=== PATIENT | male | born 1975 | race Caucasian/White ===

== ENCOUNTER 2016-09-18 05:54 | Day surgery (SDC) | payer OTHER ==
[~2016-09-18] VITALS: Ht 182.9 cm; Wt 95.6 kg
[2016-09-18] VITALS (15 sets, daily range): BP systolic 98–134; BP diastolic 52–92; PULSE 44–58; RESP 11–18; Ht 182.9 cm; Wt 95.6 kg
[2016-09-18] MEDS ORDERED: CEFAZOLIN 1 GM/50 ML (PMX) 50 ML IVPB ONE (06:00)
[2016-09-18] MEDS ORDERED: ROCURONIUM 50 MG INJ ONE (07:56)
[2016-09-18] MEDS ORDERED: LIDOCAINE 2% (SDV) 5 ML INJ ONE (07:56)
[2016-09-18] MEDS ORDERED: PROPOFOL 20 ML ONE (07:56)
--- NOTE | 2016-09-18 08:57 | HP ---
DATE OF ADMISSION: 09/18/2016 CHIEF COMPLAINT: Slow urinary stream. HISTORY OF PRESENT ILLNESS: This is a 40-year-old male who complains of a slow stream and urinary u rgency. The patient has tried Flomax, which has caused dizziness. He tried Uroxatral, which caused a dry feeling. He complains of a sensation of incomplete bladder emptying and nocturia with small volume, but increased urge. The patient also complains that the area around his penis has become numb. He reports that his peni le area and perineal area has developed numbness and 90% of the sensitivity has "gone away". The patient also complains of erectile dysfunction. He reports his erections became weaker at aroun d the time when he developed urinary symptoms. He reports he is unable to maintain good erections. The patient reports he does not have any back symptoms. He does not complain of any leg pain. Ther e is no history of radiculopathy or weakness. MRI of his spine in April of 2016 revealed mild to moderate left neuroforaminal narrowing at L4-L5, with a small foraminal disk protrusion associated with an annular fissure. The patient was offered urodynamics, but he did not want to undergo this p rocedure. PAST MEDICAL HISTORY: None. PAST SURGICAL HISTORY: Appendectomy. MEDICATIONS: None. ALLERGIES: NO KNOWN DRUG ALLERGIES. SOCIAL HISTORY: The patient quit smoking in 2005. He does not drink alcohol. FAMILY HISTORY: No history of cancer. REVIEW OF SYSTEMS: CONSTITUTIONAL: No fevers, no chills, no change in appetite, weight gain or weight loss. HEENT: No loss of hearing. No ear or sinus pain. No rhinorrhea, nosebleed or sore throat. CARDIOVASCULAR: No chest pain, no shortness of breath or heart palpitations. RESPIRATORY: No cough. No phlegm production, wheezing or hemoptysis. GASTROINTESTINAL: No abdominal pain, no cramping, no nausea. MUSCULOSKELETAL: No bone pain. No changes in strength or joint pain. INTEGUMENTARY: No skin rash or lesions. NEUROLOGICAL: No dizziness, no headaches, no numbness. PSYCHIATRIC: The patient feels anxious over his situation. PHYSICAL EXAMINATION: CONSTITUTIONAL: The patient appears to be in no acute distress. GASTROINTESTINAL EXAMINATION: Abdomen is soft. Normal bowel sounds, nondistended, nontender. Flor ia exam, none noted. Liver and spleen normal. GENITOURINARY EXAM: Penis, no deformity, no lesions, no scarring. Urethral meatus normal in size a nd location. Testes are descended bilaterally, nontender. Anus and perineum, no lesions, no scarri ng. Prostate exam in my office revealed a 30-gram prostate on rectal examination. No nodules, no asymme try, no tenderness. DIAGNOSTIC DATA: March 2016 PSA was 2.4. Pelvic ultrasound revealed a thickened bladder wall, el evated bladder neck secondary to prostate encroachment, raising the bladder floor, with a prostate v olume of 45.9 cubic cm. ASSESSMENT: 1. Elevated bladder neck. 2. Lower urinary tract symptoms, including nocturia, urgency, frequency, slow stream. 3. Erectile dysfunction. 4. Borderline elevated PSA. 5. Benign prostatic hypertrophy. RECOMMENDATIONS: I have spoken in detail with the patient in regards to BPH, natural history and bi ology. We have discussed various treatment options. I have explained to the patient that it appear s that most of his obstructive symptoms are secondary to an elevated bladder neck, rather than a mynor bal enlargement of the prostate. We then discussed some of the options available to him. Among the se options, he understands his choices include, but are not limited to, continuing no treatment, alp johnson marquise treatment, alpha reductase treatment, transurethral resection, transurethral laser ablati on of prostate, UroLift procedure, microwave. We have discussed some of the pros and cons of these various treatment options. Among these options I have recommended and the patient has elected to un dergo a transurethral laser incision of the prostate. This procedure has been explained to the shanell ent in detail. Risks and benefits have been discussed. He understands that the risks include, but are not limited to, infection, bleeding, damage to adjacent structures, heart problems, lung problem s, possibility of need for further surgery, DVT, PE, NV, CVA, nonresolution of symptoms, recurrence of symptoms, need for other treatments, need for other surgeries, bladder neck contracture, urethral stricture, worsening of symptoms, retrograde ejaculation, sexual problems, including erectile dysfu nction. All of his questions have been answered, no guarantees were given. He would like to bobo so Dictated By: RUFINO MONTEJO MD, SR/NTS Conf#: [id number] [facility]#: [id number]
[2016-09-18] MEDS ORDERED: EXCEDRIN (09:12)
--- NOTE | 2016-09-18 09:41 | OPR ---
Date/Time of Note Date/Time of Note DATE: 09/18/16 TIME: 09:40 Operative Report Preoperative Diagnosis BPH Postoperative Diagnosis BPH Operation Performed Transurethral laser incision prostate Surgeon: RUFINO MONTEJO Anesthesia: general Estimated Blood Loss: minimal Specimens none Tubes/Drains 20 fr catheter Complications: None Complications none Pt Condition Post Procedure: stable Operative\Procedure Findings elevated BN: lasered to flat fossa RUFINO MONTEJO Sep 18, 2016 09:41
--- NOTE | 2016-09-18 09:43 | PDOCDIS ---
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
[2016-09-18] MEDS ORDERED: HYDROmorphONE (0.2 MG/ML) 10ML SYG IV PRN ×3 (10:00)
[2016-09-18] MEDS ORDERED: LABETALOL HCL 20MG INJ IV PRN (10:00)
[2016-09-18] MEDS ORDERED: hydrALAzine 20 MG INJ IV PRN (10:00)
[2016-09-18] MEDS ORDERED: EPHEDrine SULFATE 50 MG/5 ML SYG IV PRN (10:00)
[2016-09-18] MEDS ORDERED: MEPERIDINE 25 MG INJ IV PRN (10:00)
[2016-09-18] MEDS ORDERED: OXYCODONE/ACETAMINOPHEN (5/325) TAB PO PRN (10:00)
[2016-09-18] MEDS ORDERED: FENTAnyl 50 MCG/ML VIAL IV PRN ×3 (10:00)
[2016-09-18] MEDS ORDERED: ONDANSETRON 4 MG INJ IV PRN (10:00)
--- NOTE | 2016-09-18 10:33 | OPR ---
DATE OF OPERATION: 09/18/2016 SURGEON: Rufino Frazier MD PREOPERATIVE DIAGNOSES: 1. Benign prostatic hypertrophy. 2. Bladder outlet obstruction. 3. Elevated bladder neck. POSTOPERATIVE DIAGNOSES: 1. Benign prostatic hypertrophy. 2. Bladder outlet obstruction. 3. Elevated bladder neck. OPERATION PERFORMED: Transurethral laser incision of prostate. INDICATIONS FOR PROCEDURE: This patient has a history of bladder outlet obstructive symptoms includ ing nocturia, slow stream, urgency, frequency. He is scheduled to undergo the above said procedure. Risks and benefits have been discussed with the patient. The patient would like to proceed. He u nderstands risks include but are not limited to infection, bleeding, damage to adjacent structures, heart problems, lung problems, possibility of need for further surgery, DVT, PE, NC, CVA, nonresolut ion of symptoms, recurrence of symptoms, need for other treatments, need for other surgeries, worsen ing of symptoms, bladder neck contracture, urethral stricture, incontinence, impotency, retrograde e jaculation. All of his questions have been answered, no guarantees given. He would like to proceed . FINDINGS: The bladder neck appeared to be elevated, 1+ to 2+ trabeculation was within the bladder w as identified. Ureteral orifices were orthotopic. The GreenLight laser was used at a setting of 60 vill[place]te for performing the procedure. PROCEDURE IN DETAIL: The patient was brought to the operating room, underwent general laryngeal mas k anesthesia. He was placed in the lithotomy position. Abdomen, perineum, and genitalia were prepp ed and draped in usual sterile fashion. The laser scope was then placed under direct vision. Ureth ra appeared to be normal. Prostate was entered. Mild bilateral lateral lobe obstruction was identi fied near the bladder neck. The bladder neck was elevated. Bladder was entered. Bladder contained 1+ to 2+ trabeculation. The ureteral orifices were orthotopic. No bladder tumors were seen. The GreenLight laser fiber was then placed through the working channel. The scope was then brought into the prostatic fossa. The elevated bladder neck area was identified. The laser was then used a t a setting of 60 villaf[place]te. The tissues between 5 o'clock and 7 o'clock were then lasered from the charbel dder neck toward the verumontanum; however, the incision was brought to about 5 mm to 1 cm proximal to the ejaculatory duct/verumontanum. This vaporization was performed until the bladder neck was fl at against the floor of the bladder, creating an incision essentially at the 6 o'clock position and opening the prostate. At all times, the ureteral orifices were rechecked. The bladder neck was aaron cked. Bladder floor was checked. Care was taken not to laser or injure the bladder neck or the ure teral orifices. As this was done, the bladder neck opened very nicely. Care was taken not to treat the lateral lobes close to the verumontanum in order to prevent retrograde ejaculation. Bladder was emptied. Overhead irrigation was turned off. Prostate fossa was carefully examined. T he area of treatment had some bleeders which were then treated with the coagulation setting on the l aser. Bladder was reirrigated. The area of treatment was reexamined. No further bleeding was iden tified. The scope was then discontinued. A 20-[place] 3-way catheter was then placed for the patien t. Catheter was hand irrigated. Irrigant was clear. Balloon was inflated to 10 mL. Catheter was placed down to gravity. Overhead bladder irrigation was started. Overhead bladder irrigation was c lear. The patient was then placed back in a supine position. He was awakened, extubated, and taken to recovery room. POSTOPERATIVE CONDITION: Stable. COMPLICATIONS: None. BLOOD LOSS: Minimal. BLOOD ADMINISTERED: None. SPECIMENS SENT TO LAB: None. Dictated By: RUFINO FRAZIER MD, SR/BELLA Conf#: [id number] DID#: [id number]
--- NOTE | 2016-09-18 11:20 | DS ---
DATE OF ADMISSION: 09/18/2016 DATE OF DISCHARGE: 09/18/2016 ADMITTING DIAGNOSIS: BPH. HOSPITAL COURSE: The patient was admitted to the hospital, underwent a transurethral laser incision of prostate. He tolerated the procedure well. He was brought to recovery room. Once the patient was stable, tolerating his diet, and remaining afebrile, the patient was discharged home. DISCHARGE INSTRUCTIONS: Activity as tolerated. No heavy lifting. The patient may shower. Follow up in 2 to 3 days for catheter removal. MEDICATIONS: 1. [place]. 2. Cipro 3. Colace. Dictated By: RUFINO MONTEJO MD SR/NTS Conf#: [id number] DID#: [id number]
[2016-09-18] MEDS ORDERED: OXYCODONE/ACETAMINOPHEN (5/325) TAB PO ONE (12:00)
== END 2016-09-18 12:45 | disposition home or self-care (01) ==
LOC: SDS 05:54
PROVIDERS: ATTEND Surgery Surgical Oncology
DX: N40.1 Benign prostatic hyperplasia with lower urinary tract symptoms (principal); N13.8 Other obstructive and reflux uropathy
CPT/HCPCS: 52601; J2175; J2405; J3010; Z7512; Z7610

== ENCOUNTER 2017-04-09 10:03 | Day surgery (SDC) | payer OTHER ==
[~2017-04-09] VITALS: Ht 185.4 cm; Wt 97.3 kg
[2017-04-09] VITALS (16 sets, daily range): BP systolic 109–147; BP diastolic 62–91; PULSE 46–69; RESP 10–25; Ht 185.4 cm; Wt 97.3 kg
[~2017-04-09 10:03] MED LIST: CEFAZOLIN 1 GM INJ ONE; EXCEDRIN
--- NOTE | 2017-04-09 13:59 | HP ---
DATE OF ADMISSION: 04/09/2017 CHIEF COMPLAINT: Slow urinary stream. HISTORY OF PRESENT ILLNESS: This patient has a history of BPH and elevated bladder neck. In 08/2016 he underwent a transurethral laser incision of his prostate. He developed about 50% improvement. In terms of his force of stream he reports that he improved by about 25%; however, he is asking to undergo a UroLift procedure for further improvement. His urinary habits include a moderate force of stream, occasional sensation of incomplete bladder emptying and occasional slow urinary stream. The patient also has a prior history of a perineal numbness. He reports that the whole area has become numb. There is no prior history of back pain. In terms of sexual function patient complains of decreased erections. His erections became weak around the time when he developed urinary symptoms. PAST MEDICAL HISTORY: None. PAST SURGICAL HISTORY: Appendectomy, transurethral laser incision of prostate. FAMILY HISTORY: No known prostate cancer or breast cancer. SOCIAL HISTORY: The patient stopped smoking in 2005, does not drink alcohol. ALLERGIES: NO KNOWN DRUG ALLERGIES. MEDICATIONS: None. PHYSICAL EXAMINATION: CONSTITUTIONAL: The patient appears to be in no acute distress. GASTROINTESTINAL: Abdomen is soft, normal bowel sounds, nondistended, nontender. Hernia exam none noted. Liver and spleen normal. GENITOURINARY: Kidneys, no CVA tenderness. Bladder, no fullness. Penis, no deformity, no lesions, no scarring. Testes descended bilaterally, nontender. Scrotum no lesions, no scarring, no edema, no cysts. ASSESSMENT: 1. Benign prostatic hyperplasia. 2. Weak urinary stream. 3. The patient is status post a transurethral laser incision of prostate; however, he continues to have significant voiding symptoms. RECOMMENDATIONS: I have spoken with the patient in detail about the natural history and biology of BPH. We discussed various treatment options. Among these options he understands his choices include, but are not limited to medical therapy, transurethral resection of prostate, laser vaporization, open or robotic prostatectomy, microwave therapy, UroLift procedure. Among these options, the patient has requested to undergo a trans-prostatic urethral lift or UroLift procedure. This procedure has been explained to the patient in detail. Risks and benefits have been discussed. He understands risks include, but are not limited to infection, bleeding, damage to adjacent structures, heart problems, lung problems, DVT, PE, ME, CVA, nonresolution of symptoms, urethral injury, urethral stricture, retrograde ejaculation, dysuria, dissatisfaction with the procedure. All of his questions have been answered, no guarantees given. He would like to proceed. Of note, I had in the past offered patient to undergo urodynamics to rule out neurogenic bladder; however, he has deferred this diagnostic study. Dictated By: RUFINO MONTEJO MD, SR/BELLA Conf#: [id number] DID#: [id number] MTDD
[2017-04-09] MEDS ORDERED: LIDOCAINE 2% (SDV) 5 ML INJ ONE (14:00)
[2017-04-09] MEDS ORDERED: GLYCOPYRROLATE 0.4 MG INJ ONE (14:00)
[2017-04-09] MEDS ORDERED: PROPOFOL 20 ML ONE (14:00)
[2017-04-09] MEDS ORDERED: ROCURONIUM 50 MG INJ ONE (14:00)
[2017-04-09] MEDS ORDERED: NEOSTIGMINE 3 MG/3 ML SYRINGE ONE (14:00)
--- NOTE | 2017-04-09 14:09 | SIPON ---
Date/Time of Note Date/Time of Note DATE: 04/09/17 TIME: 14:08 Operative Report Preoperative Diagnosis BPH Postoperative Diagnosis BPH Operation/Procedure Performed Transprostatic Urethral lift: UROLIFT Surgeon see signature line assistant general manager None Anesthesia: general Estimated blood loss: 0 - 10 ml's Transfusion Required none Specimen None Grafts/Implants none Complications none RUFINO MONTEJO Apr 09, 2017 14:09
--- NOTE | 2017-04-09 14:09 | SIPON ---
Date/Time of Note Date/Time of Note DATE: 04/09/17 TIME: 14:08 Operative Report Preoperative Diagnosis BPH Postoperative Diagnosis BPH Operation/Procedure Performed Transprostatic Urethral lift: UROLIFT Surgeon see signature line fleet administrative assistant None Anesthesia: general Estimated blood loss: 0 - 10 ml's Transfusion Required none Specimen None Grafts/Implants none Complications none RUFINO MONTEJO Apr 09, 2017 14:09
--- NOTE | 2017-04-09 14:09 | SIPON ---
Date/Time of Note Date/Time of Note DATE: 04/09/17 TIME: 14:08 Operative Report Preoperative Diagnosis BPH Postoperative Diagnosis BPH Operation/Procedure Performed Transprostatic Urethral lift: UROLIFT Surgeon see signature line assistant manager retail None Anesthesia: general Estimated blood loss: 0 - 10 ml's Transfusion Required none Specimen None Grafts/Implants none Complications none RUFINO MONTEJO Apr 09, 2017 14:09
--- NOTE | 2017-04-09 14:11 | PDOCDIS ---
Discharge Instructions DIAGNOSIS Discharge Diagnosis BPH CONDITION Patient Condition: Good HOME CARE INSTRUCTIONS: Diet Instructions: Regular ACTIVITY: Activity Restrictions: Slowly Increase Activity No Sexual Activity Bathing Restrictions: Shower FOLLOW UP/APPOINTMENTS Follow-up Plan 1 - [address] thompson office SCHOOL/WORK RELEASE May return to School/Work on: Apr 12, 2017 May return to School/Work with: No Restrictions RUFINO THOMPSON Apr 09, 2017 14:11
[2017-04-09] MEDS ORDERED: EPHEDrine SULFATE 50 MG/5 ML SYG IV PRN (14:30)
[2017-04-09] MEDS ORDERED: FENTAnyl 50 MCG/ML VIAL IV PRN ×3 (14:30)
[2017-04-09] MEDS ORDERED: OXYCODONE/ACETAMINOPHEN (5/325) TAB PO PRN ×2 (14:30)
[2017-04-09] MEDS ORDERED: MEPERIDINE 25 MG INJ IV PRN (14:30)
[2017-04-09] MEDS ORDERED: KETOROLAC 30 MG INJ IV PRN (14:30)
[2017-04-09] MEDS ORDERED: LABETALOL HCL 20MG INJ IV PRN (14:30)
[2017-04-09] MEDS ORDERED: METOCLOPRAMIDE 10 MG INJ IV PRN (14:30)
[2017-04-09] MEDS ORDERED: morphine (1 MG/ML) 10ML SYRINGE IV PRN ×3 (14:30)
[2017-04-09] MEDS ORDERED: hydrALAzine 20 MG INJ IV PRN (14:30)
[2017-04-09] MEDS ORDERED: DIPHENHYDRAMINE 50 MG INJ IV PRN (14:30)
[2017-04-09] MEDS ORDERED: ONDANSETRON 4 MG INJ IV PRN (14:30)
--- NOTE | 2017-04-09 17:58 | OPR ---
DATE OF OPERATION: 04/09/2017 PREOPERATIVE DIAGNOSIS: Benign prostatic hyperplasia. POSTOPERATIVE DIAGNOSIS: Benign prostatic hyperplasia. OPERATION PERFORMED: Transprostatic urethral lift procedure: Urolift. INDICATIONS FOR PROCEDURE: This patient has a history of bladder outlet obstructive symptoms includ ing slow urinary stream. He is status post a prior laser incision of prostate. He did gain some im provement in his urinary symptoms; however, he is not completely satisfied with his urinary stream t herefore he would like to have better and faster stream. Procedure has been explained to the patien t in detail. Risks and benefits have been discussed. All of his questions have been answered, no g uarantees given. The patient would like to proceed. FINDINGS: Bilateral lateral lobe obstruction was encountered. Four UroLift implants were placed in order to open the prostatic channel. Bladder neck was open and there was no bladder neck contractu re or urethral strictures. PROCEDURE IN DETAIL: The patient was brought to the operating room, underwent general anesthesia. He was placed in lithotomy position. Abdomen, perineum and genitalia were prepped and draped in usu al sterile fashion. The UroLift cystoscope was placed transurethrally. Urethra appeared to be norm al. Prostate was examined. Bilateral lateral lobe encroachment into the urethra was identified. B ladder neck was no longer elevated. Bladder neck was open. No bladder neck contracture was seen. Bladder was entered. Ureteral orifices were orthotopic 1+ to 2+ trabeculation was seen. The UroLift cartridge was then attached to the scope. It was rotated 90 degrees to the left of the prostate. The scope was then retracted back into the prostatic fossa. The scope was then placed ju st proximal to the verumontanum. It was angulated up towards the 2 o'clock position. At this point , the trigger mechanism was pulled. The implant was deployed. Next, the scope was advanced to tigh ten the suture. Once the white part of the suture was identified, the suture was cut. The implant placed itself properly at this location. A similar implant was then placed on the contralateral emy e at the 2 o'clock position on the right side. The visualizing obturator was then used to check the prostatic fossa. It appeared that there was re sidual prostate tissue obstructing the prostate, although anteriorly the prostate tissue had been op ened. Posteriorly there was further prostatic tissue obstructing therefore, 2 more UroLift implants were placed. These were placed slightly away from the verumontanum, closer to the bladder neck. T hey were placed at the 3 o'clock position. This effectively opened the posterior aspect of the late ral lobes. The implant was still well away from the actual bladder neck. The visualizing obturator was again used. Prostatic fossa appeared to be open. The scope was then discontinued. A 16-Frenc h catheter was placed for the patient. The patient was then placed back in a supine position. He w as awakened, extubated, and taken to recovery room in stable condition. POSTOPERATIVE CONDITION: Stable. COMPLICATIONS: None. BLOOD LOSS: Minimal. BLOOD ADMINISTERED: None. SPECIMENS SENT TO LAB: None. Dictated By: RUFINO MONTEJO MD SR/NTS Conf#: [id number] DID#: [id number]
--- NOTE | 2017-04-10 04:39 | DS ---
DATE OF ADMISSION: 04/09/2017 DATE OF DISCHARGE: 04/09/2017 ADMITTING DIAGNOSIS: Benign prostatic hypertrophy. DISCHARGE DIAGNOSIS: Benign prostatic hypertrophy. HOSPITAL COURSE: The patient was admitted to the hospital and underwent a transprosthetic urethral lift procedure known as UroLift. He tolerated the procedure well. He was then transferred to [facility]. Once patient was stable, tolerating his diet, remaining afebrile and pain was well contro lled, he was discharged home. DISCHARGE INSTRUCTIONS: Activity as tolerated. No heavy lifting. Patient may shower. Follow up i n 1 to 2 weeks. MEDICATIONS: 1. [place]. 2. Colace. 3. Cipro. Dictated By: RUFINO MONTEJO MD SR/NTS Conf#: [id number] DID#: [id number]
--- NOTE | 2017-04-10 04:39 | DS ---
DATE OF ADMISSION: 04/09/2017 DATE OF DISCHARGE: 04/09/2017 ADMITTING DIAGNOSIS: Benign prostatic hypertrophy. DISCHARGE DIAGNOSIS: Benign prostatic hypertrophy. HOSPITAL COURSE: The patient was admitted to the hospital and underwent a transprosthetic urethral lift procedure known as UroLift. He tolerated the procedure well. He was then transferred to [facility]. Once patient was stable, tolerating his diet, remaining afebrile and pain was well contro lled, he was discharged home. DISCHARGE INSTRUCTIONS: Activity as tolerated. No heavy lifting. Patient may shower. Follow up i n 1 to 2 weeks. MEDICATIONS: 1. [place]. 2. Colace. 3. Cipro. Dictated By: RUFINO MONTEJO MD SR/NTS Conf#: [id number] DID#: [id number]
--- NOTE | 2017-04-10 04:39 | DS ---
DATE OF ADMISSION: 04/09/2017 DATE OF DISCHARGE: 04/09/2017 ADMITTING DIAGNOSIS: Benign prostatic hypertrophy. DISCHARGE DIAGNOSIS: Benign prostatic hypertrophy. HOSPITAL COURSE: The patient was admitted to the hospital and underwent a transprosthetic urethral lift procedure known as UroLift. He tolerated the procedure well. He was then transferred to [facility] [place]. Once patient was stable, tolerating his diet, remaining afebrile and pain was well contro lled, he was discharged home. DISCHARGE INSTRUCTIONS: Activity as tolerated. No heavy lifting. Patient may shower. Follow up i n 1 to 2 weeks. MEDICATIONS: 1. [place]. 2. Colace. 3. Cipro. Dictated By: RUFINO MONTEJO MD SR/NTS Conf#: [id number] DID#: [id number]
== END 2017-04-09 16:14 | disposition home or self-care (01) ==
LOC: SDS 10:03
PROVIDERS: ATTEND Surgery Surgical Oncology
DX: N40.0 Benign prostatic hyperplasia without lower urinary tract symptoms (principal)
CPT/HCPCS: C9740; J0690; J2710; J3010; L8699; Z7512; Z7610